=== PATIENT | female | born 1985 | race Two or more races ===

== ENCOUNTER 2018-07-12 09:49 | Emergency (ER) | payer OTHER ==
[2018-07-12 10:01] VITALS: BP 136/87; PULSE 82; TEMP 98.1; BMI 23.8
[2018-07-12] MEDS ORDERED: LIDOCAINE 5% TOPICAL PATCH TP ONE (11:31)
[2018-07-12] MEDS ORDERED: KETOROLAC TROMETHAMINE 60 MG/2 ML VIAL IM ONE (11:31)
--- NOTE | 2018-07-12 11:31 | PDOC ---
History of Present Illness - General Chief Complaint: Pain, Acute Stated Complaint: RT ARM PAIN Time Seen by Provider: 07/12/18 10:53 History Source: Patient Exam Limitations: No Limitations - History of Present Illness Initial Comments: 07/12/18 13:52 The patient is a 32-year-old female with past medical history of right shoulder surgery, who presents to the ER with right shoulder pain. Patient states she woke up with the pain 4 days ago. Denies trauma, falling. She states that the pain radiates down her right arm. She is right-hand dominant. She is unsure as to what surgery she had on the shoulder 3 years ago. Denies fevers, chills, numbness and tingling down the extremity, weakness in the extremity. Past History - Travel Traveled outside of the country in the last 30 days: No Close contact w/someone who was outside of country & ill: No - Past Medical History Allergies/Adverse Reactions: Allergies Allergy/AdvReac Type Severity Reaction Status Date / Time aspirin Allergy Verified 07/12/18 11:15 Penicillins Allergy Verified 07/12/18 11:15 Home Medications: Ambulatory Orders Methylprednisolone [Medrol Dose Geoff] 4 mg PO ASDIR #21 tablet 07/12/18 COPD: No HTN: Yes - Immunization History Immunization Up to Date: Yes - Suicide/Smoking/Psychosocial Hx Smoking History: Never smoked Have you smoked in the past 12 months: No Hx Alcohol Use: No Drug/Substance Use Hx: No Substance Use Type: None Review of Systems - Review of Systems Able to Perform ROS?: Yes Comments:: 07/12/18 13:49 CONSTITUTIONAL: Absent: fever, chills, diaphoresis, generalized weakness, malaise, loss of appetite HEENT: Absent: rhinorrhea, nasal congestion, throat pain, throat swelling, difficulty swallowing, mouth swelling, ear pain, eye pain, visual Changes CARDIOVASCULAR: Absent: chest pain, loss of consciousness, palpitations, irregular heart rate, peripheral edema RESPIRATORY: Absent: cough, shortness of breath, dyspnea with exertion, orthopnea, wheezing, stridor, hemoptysis GASTROINTESTINAL: Absent: abdominal pain, abdominal distension, nausea, vomiting, diarrhea, constipation, melena, hematochezia GENITOURINARY: Absent: dysuria, frequency, urgency, hesitancy, hematuria, flank pain, genital pain MUSCULOSKELETAL: Present: R shoulder pain Absent: myalgia, joint swelling SKIN: Absent: rash, itching, pallor HEMATOLOGIC/IMMUNOLOGIC: Absent: easy bleeding, easy bruising, lymphadenopathy, frequent infections ENDOCRINE: Absent: unexplained weight gain, unexplained weight loss, heat intolerance, cold intolerance NEUROLOGIC: Absent: headache, focal weakness or paresthesias, dizziness, unsteady gait, seizure, mental status changes, bladder or bowel incontinence PSYCHIATRIC: Absent: anxiety, depression, suicidal or homicidal ideation, hallucinations. Is the patient limited [place]ish proficient: No *Physical Exam - Vital Signs Last Vital Signs Temp Pulse Resp BP Pulse Ox 98.1 F 82 16 136/87 100 07/12/18 09:57 07/12/18 09:57 07/12/18 09:57 07/12/18 09:57 07/12/18 09:57 - Physical Exam Comments: 07/12/18 13:49 GENERAL: Well developed, well nourished. Awake and alert. Appears uncomfortable HEENT: Normocephalic, atraumatic. PERRLA, EOMI. No conjunctival pallor. Sclera are non- icteric. Moist mucous membranes. Oropharynx is clear. NECK: Supple. Full ROM. No JVD. Carotid pulses 2+ and symmetric, without bruits. No thyromegaly. No lymphadenopathy. CARDIOVASCULAR: Regular rate and rhythm. No murmurs, rubs, or gallops. Distal pulses are 2+ and symmetric. PULMONARY: No evidence of respiratory distress. Lungs clear to auscultation bilaterally. No wheezing, rales or rhonchi. ABDOMINAL: Soft. Non-tender. Non-distended. No rebound or guarding. No organomegaly. Normoactive bowel sounds. MUSCULOSKELETAL TTP of the R shoulder at the GH joint and R deltoid. Full ROM of the R shoulder with passive motion. (+) speeds test. Pt unable to externally rotate the R shoulder without pain. Normal range of motion at all other joints. No bony deformities or tenderness. No CVA tenderness. EXTREMITIES: No cyanosis. No clubbing. No edema. No calf tenderness. SKIN: Warm and dry. Normal capillary refill. No rashes. No jaundice. NEUROLOGICAL: Alert, awake, appropriate. Cranial nerves 2-12 intact. No deficits to light touch and temperature in face, upper extremities and lower extremities. No motor deficits in the in face, upper extremities and lower extremities. Normoreflexic in the upper and lower extremities. Normal speech. Toes are down- going bilaterally. Gait is normal without ataxia. PSYCHIATRIC: Cooperative. Good eye contact. Appropriate mood and affect. Moderate Sedation - Procedure Monitoring Vital Signs: Procedure Monitoring Vital Signs Temperature 98.1 F 07/12/18 09:57 Pulse Rate 82 07/12/18 09:57 Respiratory Rate 16 07/12/18 09:57 Blood Pressure 136/87 07/12/18 09:57 O2 Sat by Pulse Oximetry (%) 100 07/12/18 09:57 Medical Decision Making - Medical Decision Making 07/12/18 13:54 Patient presents for evaluation of right shoulder pain for 4 days. No trauma to suggest pain. X-ray of the right shoulder is unremarkable Given pain with external rotation suspect possible tendinopathy positive speed' s test. Patient given Toradol and a lidocaine patch in the ER with relief of symptoms. Discharge home with sling and orthopedic follow-up. I discussed the physical exam findings, ancillary test results and final diagnoses with the patient. I answered all of the patient's questions. The patient was satisfied with the care received and felt comfortable with the discharge plan and treatment plan. The Patient agrees to follow up with the primary care physician/specialist within 24-72 hours. Return precautions were given. *DC/Admit/Observation/Transfer Diagnosis at time of Disposition: Right shoulder pain Qualifiers: Chronicity: acute Qualified Code(s): M25.511 - Pain in right shoulder - Discharge Dispostion Disposition: HOME Condition at time of disposition: Stable Decision to Admit order: No - Prescriptions Prescriptions: Methylprednisolone [Medrol Dose Geoff] 4 mg PO ASDIR #21 tablet - Referrals Referrals: Ayad Valente MD [Staff Physician] - - Patient Instructions Printed Discharge Instructions: DI for Shoulder Pain Additional Instructions: You came for evaluation of your shoulder pain Your x-ray was normal Please take the medrol dose pack as prescribed Take Tylenol 650mg every 4 hours as needed for pain Follow up with orthopedics for further evaluation this week Return to the emergency room for any new or worsening symptoms. Viniste a evaluar tu dolor de hombro Tu radiografa era normal Por favor, tome el paquete de dosis de medrol segn lo prescrito [place] Tylenol 650 mg cada 4 horas segn sea necesario para el dolor. Lizzy un seguimiento con ortopedia para blaze evaluacin adicional esta semana Regrese a la marlen de emergencias para detectar cualquier sntoma nuevo o que empeore. Print Language: BELARUSIAN - Post Discharge Activity Forms/Work/School Notes: Back to Work
[2018-07-12] MEDS ORDERED: KETOROLAC TROMETHAMINE 60 MG/2 ML VIAL ONE (11:36)
[2018-07-12] MEDS ORDERED: LIDOCAINE 5% TOPICAL PATCH ONE (11:36)
[2018-07-12] MEDS ORDERED: LIDOCAINE PATCH REMOVAL MC SCH (22:00)
== END 2018-07-12 12:59 | disposition home or self-care (01) ==
LOC: JERFT 09:49
PROC: 3E0233Z Introduction of Anti-inflammatory into Muscle, Percutaneous Approach (ICD-10-PCS; principal; 2018-07-12)
DX: M25.511 Pain in right shoulder (principal)
CPT/HCPCS: 73030-TC-RT-FY; 96372; 99281-25

== ENCOUNTER 2021-01-02 12:55 | Emergency (ER) | payer OTHER ==
[2021-01-02 13:22] VITALS: BP 131/86; PULSE 78; TEMP 98.6; BMI 29.5
== END 2021-01-02 15:30 | disposition home or self-care (01) ==
LOC: JER 12:55
DX: R07.9 Chest pain, unspecified (principal)
CPT/HCPCS: 71046-TC-FY; 93005; 93010; 99285-25; C9803; U0003; U0005

== ENCOUNTER 2021-10-22 20:53 | Emergency (ER) | payer OTHER ==
[2021-10-22 21:04] VITALS: BP 139/90; PULSE 76; TEMP 97.9; BMI 26.5
[2021-10-22] MEDS ORDERED: ACETAMINOPHEN 500 MG TABLET (FP) PO ONE (23:18)
[2021-10-22] MEDS ORDERED: diazePAM 5 MG TABLET PO ONE (23:18)
[2021-10-22] MEDS ORDERED: diazePAM 5 MG TABLET ONE (23:56)
[2021-10-22] MEDS ORDERED: ACETAMINOPHEN 500 MG TABLET (FP) ONE (23:56)
== END 2021-10-23 02:56 | disposition home or self-care (01) ==
LOC: JERFT 20:53 → JER 20:53 → JERFT 10-23 02:56
DX: S76.012A Strain of muscle, fascia and tendon of left hip, initial encounter (principal); R51.9 Headache, unspecified; V49.40XA Driver injured in collision with unspecified motor vehicles in traffic accident, initial encounter
CPT/HCPCS: 73502-TC-LT-FY; 99283-25

== ENCOUNTER 2022-06-07 13:39 | Emergency (ER) | payer OTHER ==
[2022-06-07 13:50] VITALS: BP 143/85; PULSE 78; RESP 20; TEMP 98; BMI 28.7
[2022-06-07] MEDS ORDERED: IBUPROFEN 600 MG TABLET (FP) PO ONE ×2 (14:25→14:41)
== END 2022-06-07 15:13 | disposition home or self-care (01) ==
LOC: JERFT 13:39
DX: M25.512 Pain in left shoulder (principal); M25.562 Pain in left knee; W01.0XXA Fall on same level from slipping, tripping and stumbling without subsequent striking against object, initial encounter
CPT/HCPCS: 73030-TC-LT-FY; 73562-TC-LT-FY; 99284-25

== ENCOUNTER 2022-10-19 11:12 | Emergency (ER) | payer OTHER ==
[2022-10-19 11:16] VITALS: BP 137/84; PULSE 84; RESP 18; TEMP 97.9; BMI 31.1
[2022-10-19] MEDS ORDERED: SODIUM CHLORIDE 1,000 ML IV STA (12:26)
[2022-10-19] MEDS ORDERED: ONDANSETRON 4 MG/2 ML VIAL IVPUSH ONE (12:31)
[2022-10-19] MEDS ORDERED: ACETAMINOPHEN 1000 MG/100 ML BAG IVPB ONE (12:31)
[2022-10-19] MEDS ORDERED: ACETAMINOPHEN INJECTION 100 ML IVPB ONE (12:58)
[2022-10-19] MEDS ORDERED: ONDANSETRON 4 MG/2 ML VIAL ONE (12:58)
[2022-10-19 13:26] LABS: BASO % 0.8 % (0-2.0); EOS % 1.2 % (0-4.5); HEMATOCRIT 40.1 % (32.4-45.2); LYMPH % 25.5 % (8-40); MCH 27.6 pg (25.7-33.7); MCHC 32.5 g/dl (32.0-36.0); MEAN CELL VOLUME 84.8 fl (80-96); MEAN PLT VOLUME 8.4 fl (7.5-11.1); MONO % 8.1 % (3.8-10.2); NEUT % 64.4 % (42.8-82.8); PLATELET COUNT 281 10^3/uL (134-434); RBC 4.73 M/mm3 (3.60-5.2); RDW 13.6 % (11.6-15.6); WHITE BLOOD COUNT 10.7 K/mm3 (4.0-10.0)
[2022-10-19 13:29] LABS: PH,URINE 7.5 (5.0-8.0); URINE APPEARANCE CLEAR; URINE BILIRUBIN NEGATIVE (NEGATIVE); URINE COLOR YELLOW; URINE GLUCOSE (UA) NEGATIVE (NEGATIVE); URINE KETONE NEGATIVE (NEGATIVE); URINE LEUK ESTERASE NEGATIVE (NEGATIVE); URINE NITRITE NEGATIVE (NEGATIVE); URINE PROTEIN NEGATIVE (NEGATIVE); URINE UROBILINOGEN 0.2 mg/dL (0.2-1.0)
[2022-10-19 13:47] LABS: HCG,QUALITATIVE URINE Negative
[2022-10-19 13:50] LABS: CALCIUM 9.6 mg/dL (8.5-10.1)
[2022-10-19 13:51] LABS: BLOOD UREA NITROGEN 14.1 mg/dL (7-18)
[2022-10-19 13:53] LABS: CREATININE 0.6 mg/dL (0.55-1.3)
[2022-10-19 13:55] LABS: BILIRUBIN,TOTAL 0.3 mg/dL (0.2-1); TOT PROT 6.9 g/dl (6.4-8.2)
[2022-10-19 15:23] LABS: POTASSIUM 4.9 mmol/L (3.5-5.1)
== END 2022-10-19 20:06 | disposition home or self-care (01) ==
LOC: JER 11:12
PROC: 3E033NZ Introduction of Analgesics, Hypnotics, Sedatives into Peripheral Vein, Percutaneous Approach (ICD-10-PCS; principal; 2022-10-19)
PROC: 3E033GC Introduction of Other Therapeutic Substance into Peripheral Vein, Percutaneous Approach (ICD-10-PCS; 2022-10-19)
PROC: 3E0337Z Introduction of Electrolytic and Water Balance Substance into Peripheral Vein, Percutaneous Approach (ICD-10-PCS; 2022-10-19)
DX: R10.11 Right upper quadrant pain (principal); K59.00 Constipation, unspecified
CPT/HCPCS: 36415; 74177-TC; 80053; 81003; 82150; 83690; 84703; 85025; 87086; 99285-25